=== PATIENT | male | born 1940 | race Two or more races ===

== ENCOUNTER 2022-07-28 20:39 | Emergency (ER) | payer OTHER ==
[~2022-07-28] VITALS: Ht 177.8 cm; Wt 136.0 kg
[2022-07-28] MEDS ORDERED: ONDANSETRON HCL 4 MG/2 ML VIAL IM ONE (21:15)
[2022-07-28] MEDS ORDERED: MORPHINE SULFATE 4 MG/ML SYR/VIAL IM ONE (21:15)
[2022-07-28 21:30] VITALS: BP 164/57
[2022-07-29] MEDS ORDERED: DICL75TA2 PO (00:32)
[2022-07-29] MEDS ORDERED: PREG50CA PO (00:32)
== END 2022-07-29 03:51 | disposition home or self-care (01) ==
LOC: ER 20:39 → EDBD 20:39 → ER 07-29 03:51
DX: S33.5XXA Sprain of ligaments of lumbar spine, initial encounter (principal); M54.16 Radiculopathy, lumbar region; Z79.899 Other long term (current) drug therapy; X58.XXXA Exposure to other specified factors, initial encounter; Y93.89 Activity, other specified; Y92.89 Other specified places as the place of occurrence of the external cause; Y99.8 Other external cause status
CPT/HCPCS: 72131; 93005; 96372; 99285; J2270; J2405

== ENCOUNTER 2022-11-18 20:43 | Inpatient (IN) | payer OTHER ==
[~2022-11-18] VITALS: Ht 180.3 cm; Wt 122.5 kg
[~2022-11-18 20:43] MED LIST: DICL75TA2 PO; PREG50CA PO
[2022-11-18 21:11] LABS: Basophils # (auto) 0.1 10 ^3/uL (0-0.2); Basophils % (auto) 0.5 % (0.0-2.0); Eosinophils # (auto) 0.1 10 ^3/uL (0-0.8); Eosinophils % (auto) 0.6 % (0.0-7.0); Hematocrit 41.6 % (41.0-53.0); Hemoglobin 14.4 g/dL (13.5-17.5); Lymphocytes # (auto) 1.7 10 ^3/uL (0.4-5.4); Lymphocytes % (auto) 16.7 % (10.0-50.0); Mean Corpuscular Hemoglobin 33.6 pg (28.0-32.0); Mean Corpuscular Hgb Conc. 34.5 g/dL (32.0-36.0); Mean Corpuscular Volume 97.3 fL (80.0-100.0); Monocytes # (auto) 0.7 10 ^3/uL (0-1.3); Monocytes % (auto) 6.4 % (0.0-12.0); Neutrophils # (auto) 7.9 10 ^3/uL (1.6-8.6); Neutrophils % (auto) 75.8 % (37.0-80.0); Red Blood Cells 4.28 10^6/uL (4.5-5.90); Red Cell Distribution Width 13.7 % (11.8-14.3); White Blood Cell 10.4 10^3/uL (4.4-10.8)
[2022-11-18 21:26] LABS: Albumin 3.7 g/dL (3.4-5.0); Calcium 9.6 mg/dL (8.5-10.1); Magnesium 2.4 mg/dL (1.6-2.6); Potassium 3.8 mmol/L (3.5-5.1)
[2022-11-18 21:29] LABS: Bilirubin, Total 0.8 mg/dL (0.2-1.0)
[2022-11-18 21:35] LABS: INR 1.09 (0.9-1.15); Partial Thromboplastin Time 27.8 sec (24.6-33.4)
[2022-11-18] MEDS ORDERED: ONDANSETRON HCL 4 MG/2 ML VIAL IV ONE (22:00)
[2022-11-18] MEDS ORDERED: MORPHINE SULFATE 4 MG/ML SYR/VIAL IV ONE (22:00)
[2022-11-18] MEDS ORDERED: HEPARIN SODIUM (PORCINE) 5000 UNITS/ML 1ML VIAL IV ONE (22:00)
[2022-11-18] MEDS ORDERED: HEPARIN DRIP/D5W 100UNITS/ML 250 ML IV SCH ×2 (22:00→22:30)
[2022-11-19] VITALS (17 sets, daily range): BP systolic 123–174; BP diastolic 35–73
[2022-11-19] MEDS ORDERED: MORPHINE SULFATE 4 MG/ML SYR/VIAL IV ONE (04:00)
[2022-11-19] MEDS ORDERED: MORPHINE SULFATE INJ 2 MG/ml SYRG IV PRN (04:15)
[2022-11-19] MEDS ORDERED: ONDANSETRON HCL 4 MG/2 ML VIAL IV PRN (04:15)
[2022-11-19] MEDS ORDERED: NITROGLYCERIN 0.4 MG SL TAB SL PRN (04:15)
[2022-11-19 05:45] LABS: Basophils # (auto) 0 10 ^3/uL (0-0.2); Eosinophils # (auto) 0.2 10 ^3/uL (0-0.8); White Blood Cell 10.7 10^3/uL (4.4-10.8)
[2022-11-19 05:46] LABS: Basophils % (auto) 0.3 % (0.0-2.0); Eosinophils % (auto) 1.7 % (0.0-7.0); Hematocrit 38.3 % (41.0-53.0); Hemoglobin 13.4 g/dL (13.5-17.5); Lymphocytes # (auto) 2.4 10 ^3/uL (0.4-5.4); Lymphocytes % (auto) 22.7 % (10.0-50.0); Mean Corpuscular Hemoglobin 33.9 pg (28.0-32.0); Monocytes % (auto) 9.1 % (0.0-12.0); Neutrophils # (auto) 7.1 10 ^3/uL (1.6-8.6); Neutrophils % (auto) 66.2 % (37.0-80.0); Nucleated Red Blood Cells % 0.1 %; Red Blood Cells 3.95 10^6/uL (4.5-5.90); Red Cell Distribution Width 13.4 % (11.8-14.3)
[2022-11-19 05:53] LABS: INR 1.14 (0.9-1.15); Partial Thromboplastin Time 46.4 sec (24.6-33.4)
[2022-11-19] MEDS ORDERED: HEPARIN DRIP/D5W 100UNITS/ML 250 ML IV SCH ×2 (06:30→15:30)
[2022-11-19] MEDS ORDERED: HYDROcodone-ACET 10/325MG TAB PO ONE (08:45)
[2022-11-19] MEDS ORDERED: HYDR-4297 PO (09:20)
[2022-11-19] MEDS ORDERED: BACL5TAB2 PO (09:20)
[2022-11-19] MEDS ORDERED: POTA-264 (09:20)
[2022-11-19] MEDS ORDERED: CLON0.1T PO (09:20)
[2022-11-19] MEDS ORDERED: TIZA-326 PO (09:20)
[2022-11-19] MEDS ORDERED: FURO40TA4 PO (09:20)
[2022-11-19] MEDS ORDERED: FLUT250M2 (09:20)
[2022-11-19] MEDS ORDERED: LISI10TA34 PO (09:20)
[2022-11-19] MEDS ORDERED: FIN5T PO (09:20)
[2022-11-19] MEDS ORDERED: FLUT1AER12 INH (09:20)
[2022-11-19] MEDS ORDERED: LOVA20TA4 PO (09:20)
[2022-11-19] MEDS ORDERED: GABA800T97 PO (09:20)
[2022-11-19] MEDS ORDERED: EMPA1TAB PO (09:20)
[2022-11-19] MEDS ORDERED: DICL1GEL73 TOP (09:20)
[2022-11-19] MEDS ORDERED: PANTOPRAZOLE 40 MG/10 ML VIAL INJ IV SCH (10:00)
[2022-11-19] MEDS ORDERED: ASPirin 81 mg TAB PO SCH (10:00)
[2022-11-19] MEDS ORDERED: hydrALAZINE HCL 25 MG TAB PO SCH ×2 (10:00→22:00)
[2022-11-19] MEDS ORDERED: IOHEXOL 350 MG/ML 500ML BOTTLE IJ ONE ×2 (11:12→11:29)
[2022-11-19] MEDS ORDERED: LIDOCAINE 2%HCL (LOCAL ANESTH.) INJ 20ML MDV ONE (11:12)
[2022-11-19] MEDS ORDERED: VERAPAMIL 2.5MG/ML INJ 2ML VIAL IV ONE (11:22)
[2022-11-19] MEDS ORDERED: fentaNYL CITRATE 100 MCG/2 ML VL ONE (11:22)
[2022-11-19] MEDS ORDERED: ANGIOMAX 250 MG VIAL IV ONE (11:22)
[2022-11-19] MEDS ORDERED: SODIUM CHL 0.9% 0 ML ONE (11:23)
[2022-11-19] MEDS ORDERED: MIDAZOLAM HCL 2MG/2ML 2ml VIAL (1mg/ml) ONE (11:23)
[2022-11-19] MEDS ORDERED: HEPARIN SODIUM (PORCINE) 5000 UNITS/ML 1ML VIAL ONE (11:26)
[2022-11-19 15:13] LABS: Basophils # (auto) 0 10 ^3/uL (0-0.2); Basophils % (auto) 0.3 % (0.0-2.0); Eosinophils # (auto) 0.2 10 ^3/uL (0-0.8); Eosinophils % (auto) 1.5 % (0.0-7.0); Hematocrit 41.6 % (41.0-53.0); Hemoglobin 14.2 g/dL (13.5-17.5); Lymphocytes # (auto) 2.5 10 ^3/uL (0.4-5.4); Lymphocytes % (auto) 21.8 % (10.0-50.0); Mean Corpuscular Hemoglobin 33.3 pg (28.0-32.0); Mean Corpuscular Hgb Conc. 34.2 g/dL (32.0-36.0); Mean Corpuscular Volume 97.5 fL (80.0-100.0); Monocytes # (auto) 1.1 10 ^3/uL (0-1.3); Monocytes % (auto) 9.8 % (0.0-12.0); Neutrophils # (auto) 7.5 10 ^3/uL (1.6-8.6); Neutrophils % (auto) 66.6 % (37.0-80.0); Red Blood Cells 4.27 10^6/uL (4.5-5.90); Red Cell Distribution Width 13.6 % (11.8-14.3); White Blood Cell 11.3 10^3/uL (4.4-10.8)
[2022-11-19 15:46] LABS: INR 1.12 (0.9-1.15); Partial Thromboplastin Time 29.6 sec (24.6-33.4)
[2022-11-19] MEDS: cloNIDine HCL 0.1 MG TAB PO SCH ×2 (16:04→21:44)
[2022-11-19] MEDS ORDERED: FUROSEMIDE 40 MG TAB PO SCH (18:00)
[2022-11-19] MEDS: GABAPENTIN 400 MG CAP PO SCH ×2 (19:43→21:41)
[2022-11-19] MEDS ORDERED: HYDROcodone-ACET 5/325MG TAB PO PRN (20:00)
[2022-11-19] MEDS ORDERED: FLUTICASONE IN SCH (22:00)
[2022-11-19] MEDS ORDERED: PREGABALIN 25 MG CAP PO SCH (22:00)
[2022-11-19] MEDS ORDERED: SALMETEROL IN SCH (22:00)
[2022-11-19] MEDS ORDERED: ATORVASTATIN 20 MG TAB PO SCH (22:00)
[2022-11-19] MEDS ORDERED: PRAVASTATIN SODIUM 20 MG TAB PO SCH (22:00)
[2022-11-20] MEDS ORDERED: POTASSIUM CHL 10 Meq TABLET PO SCH (10:00)
[2022-11-20] MEDS ORDERED: FINASTERIDE 5 MG TAB PO SCH (10:00)
[2022-11-20] MEDS ORDERED: EMPAGLIFLOZIN 10 MG TAB PO SCH (10:00)
[2022-11-20] MEDS ORDERED: LISINOPRIL 10 MG TAB PO SCH (10:00)
== END 2022-11-20 00:10 | disposition short-term general hospital (02) | DRG 282 ==
LOC: EDBD 20:43 → ER 20:48 → TELE 11-19 04:19 → TELE-WESTW 11-19 12:50
PROVIDERS: ADMIT Nurse Practitioner; ATTEND Internal Medicine Geriatric Medicine
PROC: 4A023N7 Measurement of Cardiac Sampling and Pressure, Left Heart, Percutaneous Approach (ICD-10-PCS; principal; 2022-11-19)
PROC: B2111ZZ Fluoroscopy of Multiple Coronary Arteries using Low Osmolar Contrast (ICD-10-PCS; 2022-11-19)
DX: I21.4 Non-ST elevation (NSTEMI) myocardial infarction (principal); I10 Essential (primary) hypertension; E66.9 Obesity, unspecified; E78.5 Hyperlipidemia, unspecified; I25.10 Atherosclerotic heart disease of native coronary artery without angina pectoris; N40.0 Benign prostatic hyperplasia without lower urinary tract symptoms; R73.03 Prediabetes; Z68.37 Body mass index [BMI] 37.0-37.9, adult
CPT/HCPCS: 36415; 71045; 80053; 83735; 83880; 84484; 85025; 85610; 85730; 93005; 93306; 93458; 96365; 96367; 96375; 96376; 99152; 99291; C9113; G0378; J2250; J2405

== ENCOUNTER 2024-03-07 13:06 | Inpatient (IN) | payer OTHER ==
[~2024-03-07] VITALS: Ht 171.4 cm; Wt 106.5 kg
[~2024-03-07 13:06] MED LIST changes: +BACL5TAB2 PO; +CLON0.1T PO; +DICL1GEL73 TOP; +EMPA1TAB PO; +FIN5T PO; +FLUT1AER12 INH; +FLUT250M2; +FURO40TA4 PO; +GABA800T97 PO; +HYDR50TA47 PO; +LISI10TA34 PO; +LOVA20TA4 PO; +POTA-264 PO; +TIZA1TAB20 PO
[2024-03-07 13:30] VITALS: PULSE 57; RESP 16; O2SAT 94
[2024-03-07] MEDS: SODIUM CHLORIDE 0.9% 500 ML IV ONE (14:31)
[2024-03-07 15:05] LABS: Basophils # (auto) 0.1 10 ^3/uL (0-0.2); Basophils % (auto) 0.5 % (0.0-2.0); Eosinophils # (auto) 0.5 10 ^3/uL (0-0.8); Eosinophils % (auto) 3.8 % (0.0-7.0); Hematocrit 34.6 % (41.0-53.0); Hemoglobin 11.9 g/dL (13.5-17.5); Lymphocytes # (auto) 1.8 10 ^3/uL (0.4-5.4); Mean Corpuscular Hgb Conc. 34.4 g/dL (32.0-36.0); Mean Corpuscular Volume 98.9 fL (80.0-100.0); Monocytes % (auto) 8.5 % (0.0-12.0); Neutrophils # (auto) 8.7 10 ^3/uL (1.6-8.6); Neutrophils % (auto) 72.2 % (37.0-80.0); Platelet Count (auto) 226 10^3/uL (140-450); Red Cell Distribution Width 13.6 % (11.8-14.3); White Blood Cell 12.1 10^3/uL (4.4-10.8)
[2024-03-07 15:35] LABS: Alanine Aminotransferase 36 U/L (7-40); Alkaline Phosphatase 83 U/L (46-116); Anion Gap 11 (5-15); Aspartate Aminotransferase 30 U/L (13-40); BUN/Creatinine Ratio 10.7 (10.0-20.0); Bilirubin, Total 0.6 mg/dL (0.2-1.0); Blood Urea Nitrogen 26 mg/dL (9-23); Calcium 10.2 mg/dL (8.7-10.4); Carbon Dioxide 23 mmol/L (20-30); Chloride 105 mmol/L (98-107); Glucose 114 mg/dL (74-106); Potassium 4.9 mmol/L (3.5-5.1); Sodium 139 mmol/L (136-145); Total Protein 7.2 g/dL (5.7-8.2)
[2024-03-07] MEDS: SODIUM CHLORIDE 0.9% 1,000 ML IV SCH (21:55)
[2024-03-07] MEDS: HYDROcodone-ACET 5/325MG TAB PO PRN (23:42)
[2024-03-08] VITALS (13 sets, daily range): BP systolic 128–178; BP diastolic 55–81; PULSE 57–98; RESP 14–20; TEMP 97.5–98.2; O2SAT 94–98
[2024-03-08] MEDS ORDERED: ASPI-543 PO (03:27)
[2024-03-08] MEDS ORDERED: LISI20TA56 PO (03:27)
[2024-03-08] MEDS ORDERED: ATOR-507 PO (03:27)
[2024-03-08] MEDS ORDERED: MORP15TA PO (03:27)
[2024-03-08] MEDS ORDERED: CHOL20007 PO (03:27)
[2024-03-08] MEDS ORDERED: HYDR-4798 PO (03:27)
[2024-03-08] MEDS ORDERED: MULT1TAB95 PO (03:27)
[2024-03-08 06:33] LABS: Chloride 108 mmol/L (98-107); Potassium 4.8 mmol/L (3.5-5.1); Sodium 140 mmol/L (136-145)
[2024-03-08 06:34] LABS: Anion Gap 7 (5-15); Calcium 9.4 mg/dL (8.7-10.4); Carbon Dioxide 25 mmol/L (20-30)
[2024-03-08 06:39] LABS: BUN/Creatinine Ratio 15.2 (10.0-20.0); Blood Urea Nitrogen 25 mg/dL (9-23); Glucose 107 mg/dL (74-106)
[2024-03-08] MEDS: FAMOTIDINE 20 MG TAB PO SCH (09:26)
[2024-03-08] MEDS: ASPirin 81 mg TAB PO ONE (09:26)
[2024-03-08] MEDS: ACETAMINOPHEN 325 MG TAB PO PRN (09:26)
[2024-03-08] MEDS: ENOXAPARIN SOD 30 MG/0.3 ML SYRINGE SC SCH (09:27)
[2024-03-08] MEDS: NITROGLYCERIN 0.4 MG SL TAB SL PRN (09:28)
[2024-03-08] MEDS: NITROGLYCERIN 0.4 MG SL TAB SL ONE (09:28)
[2024-03-08] MEDS: ONDANSETRON HCL 4 MG/2 ML VIAL IV PRN (09:32)
[2024-03-08] MEDS: MORPHINE SULFATE INJ 2 MG/ml SYRG IV PRN (09:38)
[2024-03-08] MEDS: CLOPIDOGREL BISULFATE 75 MG TAB PO ONE (09:45)
[2024-03-08] MEDS: ASPirin-EC 81 mg tab PO SCH (10:16)
[2024-03-08] MEDS: CLOPIDOGREL BISULFATE 75 MG TAB PO SCH (10:16)
[2024-03-08 11:24] LABS: INR 1.22 (0.9-1.15); Partial Thromboplastin Time 29.3 SEC (24.5-34.5); Prothrombin Time 12.7 sec (9.3-11.8)
[2024-03-08 14:11] LABS: COVID19 ANTIGEN SOFIA FIA NEGATIVE (NEGATIVE)
[2024-03-08] MEDS: CYCLOBENZAPRINE HCL 10 MG TAB PO SCH (14:49)
[2024-03-08] MEDS: OXYCODONE W/ ACETAMINOPHEN 5/325MG TABLET PO PRN (16:29)
[2024-03-08] MEDS: LIDOCAINE 5% TOPICAL PATCH TOP ONE (16:30)
[2024-03-08] MEDS: NITROGLYCERIN 2% OINT 1GM PKG TD ONE (16:32)
[2024-03-08] MEDS: ENOXAPARIN SOD 60 MG/0.6 ML SYRINGE SC ONE (16:46)
[2024-03-08] MEDS: ATORVASTATIN 20 MG TAB PO SCH (21:45)
[2024-03-08] MEDS: ENOXAPARIN SOD 100 MG/1 ML SYRINGE SC SCH (21:46)
[2024-03-09] VITALS (65 sets, daily range): BP systolic 129–186; BP diastolic 33–77; PULSE 59–102; RESP 11–21; TEMP 97.5–98.9; O2SAT 93–98
[2024-03-09 07:40] LABS: Basophils # (auto) 0 10 ^3/uL (0-0.2); Basophils % (auto) 0.6 % (0.0-2.0); Eosinophils # (auto) 0.4 10 ^3/uL (0-0.8); Eosinophils % (auto) 5.1 % (0.0-7.0); Hematocrit 32.3 % (41.0-53.0); Hemoglobin 11.5 g/dL (13.5-17.5); Lymphocytes # (auto) 2.1 10 ^3/uL (0.4-5.4); Lymphocytes % (auto) 26.6 % (10.0-50.0); Mean Corpuscular Hgb Conc. 35.5 g/dL (32.0-36.0); Mean Corpuscular Volume 98.8 fL (80.0-100.0); Monocytes # (auto) 0.8 10 ^3/uL (0-1.3); Monocytes % (auto) 9.4 % (0.0-12.0); Neutrophils # (auto) 4.7 10 ^3/uL (1.6-8.6); Neutrophils % (auto) 58.3 % (37.0-80.0); Platelet Count (auto) 190 10^3/uL (140-450); Red Blood Cells 3.27 10^6/uL (4.5-5.90); Red Cell Distribution Width 12.9 % (11.8-14.3)
[2024-03-09 07:47] LABS: Urine Bacteria None Seen /hpf (None Seen)
[2024-03-09 07:49] LABS: Alanine Aminotransferase 34 U/L (7-40); Alkaline Phosphatase 84 U/L (46-116); Anion Gap 8 (5-15); Calcium 9.4 mg/dL (8.7-10.4); Carbon Dioxide 24 mmol/L (20-30); Chloride 108 mmol/L (98-107); Glucose 90 mg/dL (74-106); Potassium 4.9 mmol/L (3.5-5.1); Sodium 140 mmol/L (136-145)
[2024-03-09 07:50] LABS: Albumin 3.6 g/dL (3.2-4.8); Aspartate Aminotransferase 39 U/L (13-40)
[2024-03-09 07:51] LABS: BUN/Creatinine Ratio 15.7 (10.0-20.0); Bilirubin, Total 1.2 mg/dL (0.2-1.0); Blood Urea Nitrogen 21 mg/dL (9-23); Phosphorus 2.5 mg/dL (2.4-5.1); Total Protein 6.6 g/dL (5.7-8.2)
[2024-03-09] MEDS: LIDOCAINE 5% TOPICAL PATCH TOP SCH (08:04)
[2024-03-09 08:08] LABS: Urine Blood Negative /uL (Negative); Urine Clarity Clear (Clear); Urine Color Yellow (Yellow); Urine Protein, UAD TRACE (Negative); Urine Specific Gravity 1.016 (1.001-1.035); Urine Urobilinogen Normal (Negative); Urine WBC 4 /hpf (0 - 3); Urine pH 6.5 (5.0-9.0)
[2024-03-09 08:21] LABS: Protein, Urine 28.5 mg/dL (0.0-11.9)
[2024-03-09 08:22] LABS: Creatinine, Urine 79.79 mg/dL (30.0-125.0)
[2024-03-09] MEDS: NITROGLYCERIN 2% OINT 1GM PKG TD SCH (09:20)
[2024-03-09] MEDS: hydrALAZINE HCL 20 MG/ML VL IV PRN (09:43)
[2024-03-09] MEDS: MORPHINE SULFATE INJ 2 MG/ml SYRG IV PRN (09:43)
[2024-03-09] MEDS ORDERED: LORazepam 0.5 MG TAB PO ONE (09:45)
[2024-03-09] MEDS: LORazepam 0.5 MG TAB PO ONE (10:08)
[2024-03-09] MEDS: NITROGLYCERIN 50MG/250ML 250 ML IV SCH (11:25)
[2024-03-09] MEDS: MIDAZOLAM HCL 2MG/2ML 2ml VIAL (1mg/ml) ONE ×2 (15:11→15:44)
[2024-03-09] MEDS: ANGIOMAX 250 MG VIAL IV ONE (15:11)
[2024-03-09] MEDS: SODIUM CHL 0.9% 0 ML ONE (15:11)
[2024-03-09] MEDS: HEPARIN IN NS 1000Units/500mL 1,500 ML ONE (15:11)
[2024-03-09] MEDS: fentaNYL CITRATE 100 MCG/2 ML VL ONE ×2 (15:11→15:43)
[2024-03-09] MEDS: LIDOCAINE 2%HCL (LOCAL ANESTH.) INJ 20ML MDV ONE (15:11)
[2024-03-09] MEDS: IOHEXOL 350 MG/ML 100ML IJ ONE ×2 (15:11→16:11)
[2024-03-09] MEDS: ALPRAZolam 0.25 MG TAB PO SCH (22:05)
[2024-03-10] VITALS (71 sets, daily range): BP systolic 109–161; BP diastolic 37–111; PULSE 65–109; RESP 10–21; TEMP 97.3–99.6; O2SAT 91–98
[2024-03-10 04:02] LABS: Anion Gap 8 (5-15); Carbon Dioxide 23 mmol/L (20-30); Chloride 110 mmol/L (98-107); Potassium 4.2 mmol/L (3.5-5.1); Sodium 141 mmol/L (136-145)
[2024-03-10 04:03] LABS: Calcium 9.5 mg/dL (8.7-10.4)
[2024-03-10 04:05] LABS: Eosinophils # (auto) 0.2 10 ^3/uL (0-0.8); Monocytes # (auto) 1.2 10 ^3/uL (0-1.3); Red Cell Distribution Width 13.2 % (11.8-14.3)
[2024-03-10 04:08] LABS: BUN/Creatinine Ratio 18.3 (10.0-20.0); Basophils # (auto) 0 10 ^3/uL (0-0.2); Basophils % (auto) 0.5 % (0.0-2.0); Blood Urea Nitrogen 19 mg/dL (9-23); Eosinophils % (auto) 1.7 % (0.0-7.0); Glucose 98 mg/dL (74-106); Hematocrit 32.5 % (41.0-53.0); Hemoglobin 11.8 g/dL (13.5-17.5); Lymphocytes % (auto) 18.4 % (10.0-50.0); Mean Corpuscular Hemoglobin 35.2 pg (28.0-32.0); Mean Corpuscular Hgb Conc. 36.2 g/dL (32.0-36.0); Mean Corpuscular Volume 97.3 fL (80.0-100.0); Monocytes % (auto) 10.9 % (0.0-12.0); Neutrophils # (auto) 7.4 10 ^3/uL (1.6-8.6); Neutrophils % (auto) 68.5 % (37.0-80.0); Platelet Count (auto) 200 10^3/uL (140-450); Red Blood Cells 3.34 10^6/uL (4.5-5.90); White Blood Cell 10.8 10^3/uL (4.4-10.8)
[2024-03-10] MEDS: LACTULOSE 20Gm/30ML SOLN PO ONE (14:45)
[2024-03-10] MEDS: SENNA 8.6 MG TAB PO SCH (21:08)
[2024-03-11 01:00] VITALS: BP 177/70; PULSE 88; RESP 16; TEMP 99.3; O2SAT 100
[2024-03-11 05:00] VITALS: BP 152/87; PULSE 73; RESP 18; TEMP 98.7; O2SAT 95
[2024-03-11 08:00] VITALS: PULSE 101
[2024-03-11 09:02] VITALS: BP 148/71; PULSE 87; RESP 19; TEMP 98.7; O2SAT 96
[2024-03-11] MEDS ORDERED: OXYCODONE W/ ACETAMINOPHEN 5/325MG TABLET PO PRN ×2 (12:45)
[2024-03-11 13:15] VITALS: BP 145/44; PULSE 70; RESP 17; TEMP 98.1; O2SAT 94
[2024-03-11] MEDS: LACTULOSE 20Gm/30ML SOLN PO ONE (15:21)
[2024-03-11 17:29] VITALS: BP 103/64; PULSE 85; RESP 17; TEMP 98.4; O2SAT 97
[2024-03-11] MEDS: FINASTERIDE 5 MG TAB PO SCH (18:00)
[2024-03-11] MEDS ORDERED: SENNA 8.6 MG TAB PO SCH (22:00)
[2024-03-11] MEDS ORDERED: CARVEDILOL 3.125 MG TAB PO SCH (22:00)
[2024-03-12] MEDS ORDERED: LISINOPRIL 5 MG TAB PO SCH (10:00)
== END 2024-03-11 19:14 | disposition home health service (06) | DRG 280 ==
LOC: ER 13:06 → EDBD 13:06 → TELE 21:48 → TELE-WESTW 03-08 00:27 → ICU WEST 03-09 10:51 → TELE-CENTR 03-10 15:14
PROVIDERS: ADMIT Nurse Practitioner Family; ATTEND Nurse Practitioner Family
PROC: B2111ZZ Fluoroscopy of Multiple Coronary Arteries using Low Osmolar Contrast (ICD-10-PCS; principal; 2024-03-07)
PROC: B2131ZZ Fluoroscopy of Multiple Coronary Artery Bypass Grafts using Low Osmolar Contrast (ICD-10-PCS; 2024-03-07)
PROC: B2181ZZ Fluoroscopy of Left Internal Mammary Bypass Graft using Low Osmolar Contrast (ICD-10-PCS; 2024-03-07)
DX: I21.4 Non-ST elevation (NSTEMI) myocardial infarction (principal); N17.0 Acute kidney failure with tubular necrosis; N40.0 Benign prostatic hyperplasia without lower urinary tract symptoms; G89.29 Other chronic pain; E78.5 Hyperlipidemia, unspecified; G90.8 Other disorders of autonomic nervous system; I25.10 Atherosclerotic heart disease of native coronary artery without angina pectoris; I12.9 Hypertensive chronic kidney disease with stage 1 through stage 4 chronic kidney disease, or unspecified chronic kidney disease; N18.9 Chronic kidney disease, unspecified; Z95.1 Presence of aortocoronary bypass graft; Z90.49 Acquired absence of other specified parts of digestive tract
CPT/HCPCS: 36415; 70450; 71250; 74176; 76775; 80048; 80053; 81001; 82570; 82962; 83735; 84100; 84156; 84300; 84484; 85025; 85379; 85610; 85730; 87081; 87426; 93005; 93306; 93458; 93970; 96360; 97110; 97116; 97163; 97530; 99152; 99291; G0378; J2250; J2405

== ENCOUNTER 2024-03-12 00:36 | Emergency (ER) | payer OTHER ==
[~2024-03-12] VITALS: Ht 170.2 cm; Wt 80.0 kg
[~2024-03-12 00:36] MED LIST changes: +ASPI-543 PO; +ATOR-507 PO; -BACL5TAB2 PO; +CHOL20007 PO; -DICL75TA2 PO; +HYDR-4798 PO; -LISI10TA34 PO; +LISI20TA56 PO; +MORP15TA PO; +MULT1TAB95 PO
[2024-03-12 01:16] LABS: Basophils # (auto) 0.1 10 ^3/uL (0-0.2); Basophils % (auto) 0.6 % (0.0-2.0); Eosinophils # (auto) 0.2 10 ^3/uL (0-0.8); Eosinophils % (auto) 1.7 % (0.0-7.0); Hematocrit 35.1 % (41.0-53.0); Hemoglobin 12.3 g/dL (13.5-17.5); Lymphocytes # (auto) 1.8 10 ^3/uL (0.4-5.4); Lymphocytes % (auto) 13.8 % (10.0-50.0); Mean Corpuscular Hemoglobin 34.4 pg (28.0-32.0); Mean Corpuscular Hgb Conc. 35.1 g/dL (32.0-36.0); Mean Corpuscular Volume 97.8 fL (80.0-100.0); Monocytes # (auto) 1.3 10 ^3/uL (0-1.3); Neutrophils # (auto) 9.5 10 ^3/uL (1.6-8.6); Neutrophils % (auto) 73.9 % (37.0-80.0); Platelet Count (auto) 232 10^3/uL (140-450); Red Blood Cells 3.59 10^6/uL (4.5-5.90); Red Cell Distribution Width 13.1 % (11.8-14.3); White Blood Cell 12.9 10^3/uL (4.4-10.8)
[2024-03-12 01:19] LABS: Chloride 113 mmol/L (98-107); Potassium 3.7 mmol/L (3.5-5.1); Sodium 143 mmol/L (136-145)
[2024-03-12 01:20] LABS: Anion Gap 7 (5-15); Carbon Dioxide 23 mmol/L (20-31)
[2024-03-12 01:21] LABS: Calcium 9.5 mg/dL (8.7-10.4)
[2024-03-12 01:25] LABS: BUN/Creatinine Ratio 17.2 (10.0-20.0); Blood Urea Nitrogen 21 mg/dL (9-23); Glucose 113 mg/dL (74-106)
[2024-03-12] MEDS: CEFEPIME 2GM/50ML NS 50 ML IV ONE (05:15)
[2024-03-12 05:38] VITALS: PULSE 96; RESP 20; O2SAT 96
[2024-03-12] MEDS: HYDROcodone-ACET 5/325MG TAB PO ONE (06:01)
[2024-03-12] MEDS ORDERED: HYDROcodone-ACET 5/325MG TAB PO PRN (06:15)
[2024-03-12 07:30] VITALS: PULSE 96; RESP 20; TEMP 97.7; O2SAT 96
[2024-03-12] MEDS: cloNIDine HCL 0.1 MG TAB PO ONE (08:18)
[2024-03-12] MEDS: HYDROcodone-ACET 10/325MG TAB PO ONE (13:13)
[2024-03-12 14:58] VITALS: BP 169/66; PULSE 81; RESP 20; O2SAT 97
== END 2024-03-12 16:22 ==
LOC: EDBD 00:36 → ER 00:36
DX: R55 Syncope and collapse (principal); J18.9 Pneumonia, unspecified organism; R53.1 Weakness; E78.5 Hyperlipidemia, unspecified; I10 Essential (primary) hypertension; Z90.49 Acquired absence of other specified parts of digestive tract
CPT/HCPCS: 36415; 70450; 71045; 72125; 80048; 84484; 85025; 96365; 99291; J0692